=== PATIENT | male | born 1985 | race Two or more races ===

== ENCOUNTER 2022-09-10 22:20 | Emergency (ER) | payer MEDICAID ==
[~2022-09-10] VITALS: Ht 172.7 cm; Wt 56.8 kg
[~2022-09-10 22:20] MED LIST: ACET500T58 PO; CARV3.1240 PO; CEPH-509 PO; CEPH-510 PO
[2022-09-10 22:40] VITALS: BP 108/78; PULSE 103; RESP 18; O2SAT 97
[2022-09-11] MEDS ORDERED: KETOROLAC TROMETH 60MG/2ML VIAL IM ONE (01:30)
[2022-09-11] MEDS ORDERED: ONDANSETRON ODT 4 MG TAB PO ONE ×2 (01:30)
[2022-09-11] MEDS ORDERED: SODIUM CHLORIDE 0.9% 1,000 ML IV ONE (01:30)
[2022-09-11] MEDS ORDERED: THIAMINE 100mg/ml INJ (200mg/2ml VIAL) IV ONE (01:30)
[2022-09-11] MEDS ORDERED: FOLIC ACID 1 MG, MULTIPLE VITAMIN 10 ML, MAGNESIUM SULF SDV 50% 8 MEQ, THIAMINE INJ 100... INJ SCH ×5 (12:00)
[2022-09-12] MEDS ORDERED: PSEU30TA3 PO (07:41)
[2022-09-12] MEDS ORDERED: AUG875T PO (07:41)
[2022-09-12] MEDS ORDERED: ZOFR4T PO (07:41)
[2022-09-12] MEDS ORDERED: FLUT1SPR5 (07:41)
[2022-09-12] MEDS ORDERED: PRED20TA2 PO (07:41)
[2022-09-12] MEDS ORDERED: IBU600T PO (07:41)
== END 2022-09-11 02:23 | disposition left against medical advice (07) ==
LOC: ER 22:20
DX: S09.90XA Unspecified injury of head, initial encounter (principal); F10.129 Alcohol abuse with intoxication, unspecified; F17.210 Nicotine dependence, cigarettes, uncomplicated; R07.89 Other chest pain; Z79.899 Other long term (current) drug therapy; Y04.2XXA Assault by strike against or bumped into by another person, initial encounter; Y93.89 Activity, other specified; Y92.89 Other specified places as the place of occurrence of the external cause; Y99.8 Other external cause status; Y90.9 Presence of alcohol in blood, level not specified
CPT/HCPCS: 70450; 70486; 71045

== ENCOUNTER 2022-09-12 05:48 | Emergency (ER) | payer MEDICAID, OTHER ==
[~2022-09-12] VITALS: Ht 172.7 cm; Wt 61.0 kg
[2022-09-12 05:48] VITALS: BP 121/78; PULSE 88; TEMP 98
[2022-09-12] MEDS ORDERED: ACETAMINOPHEN 325 MG TAB PO ONE (06:00)
[2022-09-12] MEDS ORDERED: DexAMETHasone SOD PHOS 10MG/1ML VIAL INJ IM ONE (07:30)
[2022-09-12] MEDS ORDERED: HYDROcodone-ACET 5/325MG TAB PO ONE (07:30)
[2022-09-12] MEDS ORDERED: ONDANSETRON ODT 4 MG TAB PO ONE (07:30)
[2022-09-12] MEDS ORDERED: ALBUTEROL SULF 2.5 MG/0.5ML(0.5%) NEB SOLN NEB ONE (07:30)
[2022-09-12] MEDS ORDERED: IPRATROPIUM BROM 0.5 MG/2.5ML INH SOL NEB ONE (07:30)
[2022-09-12] MEDS ORDERED: PSEU30TA3 PO (07:41)
[2022-09-12] MEDS ORDERED: PRED20TA2 PO (07:41)
[2022-09-12] MEDS ORDERED: FLUT1SPR5 (07:41)
[2022-09-12] MEDS ORDERED: ZOFR4T PO (07:41)
[2022-09-12] MEDS ORDERED: AUG875T PO (07:41)
[2022-09-12] MEDS ORDERED: IBU600T PO (07:41)
[2022-09-12 07:55] VITALS: RESP 16; O2SAT 97
== END 2022-09-12 08:38 | disposition home or self-care (01) ==
LOC: EDUNIT# 05:48 → ER 05:48
DX: J01.00 Acute maxillary sinusitis, unspecified (principal); R51.9 Headache, unspecified; Z79.1 Long term (current) use of non-steroidal anti-inflammatories (NSAID); Z79.899 Other long term (current) drug therapy
CPT/HCPCS: 94640; 96372; 99283; J1100; J7644; Q0162

== ENCOUNTER 2022-12-18 13:11 | Emergency (ER) | payer MEDICAID ==
[~2022-12-18] VITALS: Ht 170.2 cm; Wt 63.6 kg
[~2022-12-18 13:11] MED LIST changes: +AUG875T PO; +FLUT1SPR5; +IBU600T PO; +PRED20TA2 PO; +PSEU30TA3 PO; +ZOFR4T PO
[2022-12-18] MEDS ORDERED: SODIUM CHLORIDE 0.9% 1,000 ML IV ONE ×2 (13:30)
[2022-12-18 13:59] LABS: Basophils # (auto) 0 10 ^3/uL (0-0.2); Basophils % (auto) 0.4 % (0.0-2.0); Eosinophils # (auto) 0.2 10 ^3/uL (0-0.8); Eosinophils % (auto) 2.4 % (0.0-7.0); Hematocrit 50.6 % (41.0-53.0); Hemoglobin 16.6 g/dL (13.5-17.5); Lymphocytes # (auto) 1.7 10 ^3/uL (0.4-5.4); Mean Corpuscular Hgb Conc. 32.9 g/dL (32.0-36.0); Mean Corpuscular Volume 91.1 fL (80.0-100.0); Monocytes # (auto) 0.2 10 ^3/uL (0-1.3); Monocytes % (auto) 3.6 % (0.0-12.0); Neutrophils # (auto) 4.3 10 ^3/uL (1.6-8.6); Neutrophils % (auto) 67.6 % (37.0-80.0); Nucleated Red Blood Cells % 0.1 %; Red Blood Cells 5.55 10^6/uL (4.5-5.90); Red Cell Distribution Width 13.3 % (11.8-14.3); White Blood Cell 6.4 10^3/uL (4.4-10.8)
[2022-12-18 14:17] LABS: Alanine Aminotransferase 18 U/L (7-40); Albumin 4.9 g/dL (3.2-4.8); Alkaline Phosphatase 116 U/L (46-116); Anion Gap 10 (5-15); Aspartate Aminotransferase 20 U/L (13-40); BUN/Creatinine Ratio 14.7 (10.0-20.0); Bilirubin, Total 1.2 mg/dL (0.2-1.0); Blood Urea Nitrogen 14 mg/dL (9-23); Calcium 9.8 mg/dL (8.7-10.4); Carbon Dioxide 27 mmol/L (20-30); Chloride 99 mmol/L (98-107); Glucose 176 mg/dL (74-106); Potassium 4.1 mmol/L (3.5-5.1); Sodium 136 mmol/L (136-145); Total Protein 7.3 g/dL (5.7-8.2)
[2022-12-18 14:26] VITALS: BP 130/74; PULSE 84; RESP 18; O2SAT 99
== END 2022-12-18 14:42 | disposition left against medical advice (07) ==
LOC: ER 13:11 → EDBD 13:11 → ER 14:42
DX: E86.0 Dehydration (principal); F17.210 Nicotine dependence, cigarettes, uncomplicated; R07.9 Chest pain, unspecified
CPT/HCPCS: 36415; 80053; 85025